=== PATIENT | female | born 1965 | race Caucasian/White ===

== ENCOUNTER 2025-04-25 17:42 | Inpatient (IN) | payer OTHER ==
[~2025-04-25 17:42] MED LIST: Iopamidol-370 76% 500 ML MDV (1 ML CHARGE) ONE
[2025-04-25 18:24] LABS: #Basophils Less than 0.03 10x3/uL (0.0-0.2); #Eosinophils 0.13 10x3/uL (0.0-0.7); #Monocytes 0.24 10x3/uL (0.11-0.59); #Neutrophils 3.40 10x3/uL (1.40-6.50); %Basophils 0.4 % (0.0-1.0); %Eosinophils 2.7 % (0.0-10.0); %Lymphocytes 22.2 % (21.0-51.0); %Monocytes 4.9 % (0.0-10.0); %Neutrophils 69.8 % (42.0-75.0); Hematocrit 35.8 % (36.0-47.0); Hemoglobin 11.9 g/dL (12.0-16.0); Mean Corpuscular Hemoglobin 29.5 pg (27.0-31.0); Mean Corpuscular Volume 88.6 fL (78.0-98.0); Platelet Count 213 10x3/uL (130-400); Red Blood Cell (RBC) Count 4.04 mill/uL (4.20-5.40); White Blood Cell (WBC) Count 4.87 10x3/uL (4.8-10.8)
[2025-04-25 18:38] LABS: ALT (SGPT) 89 U/L (Less than 34); AST (SGOT) 262 U/L (11-34); Albumin 3.9 g/dL (3.1-4.5); Alkaline Phosphatase 110 U/L (40-110); Anion Gap 15 mmol/L (10-20); BUN (Urea Nitrogen) 16 mg/dL (9.8-20.1); Bilirubin, Total 0.6 mg/dL (0.3-1.2); Calc. Creatinine Clearance 0 mL/min (70-130); Calcium 9.0 mg/dL (7.8-10.44); Carbon Dioxide 25 mmol/L (22-29); Chloride 106 mmol/L (98-107); Globulin 2.7 g/dL (2.4-3.5); Glucose 123 mg/dL (70-105); Potassium 3.8 mmol/L (3.5-5.1); Sodium 142 mmol/L (136-145)
[2025-04-26] MEDS ORDERED: Dextrose 50% Abboject 50 ML SYRINGE SLOW IVP PRN (05:58)
[2025-04-26] MEDS ORDERED: hydrALAZINE 20 MG/ML VIAL SLOW IVP PRN (05:58)
[2025-04-26] MEDS ORDERED: Methocarbamol 500 MG TAB PO PRN (05:58)
[2025-04-26] MEDS ORDERED: Glucagon 1 MG/ML KIT IM PRN (05:58)
[2025-04-26] MEDS ORDERED: Ondansetron PF 4 MG/2 ML Vial ONE ×4 (06:04→17:15)
[2025-04-26] MEDS: Senokot S 8.6-50 MG TAB PO SCH (09:38)
[2025-04-26] MEDS: FLU (Fluarix Triv) 25-26 (6MOS UP)/PF 45 MCG/0.5 ML Syringe IM ONE (09:44)
[2025-04-26] MEDS: Ondansetron PF 4 MG/2 ML Vial IVP PRN (10:20)
[2025-04-26] MEDS ORDERED: Bupivacaine 0.25% HCL 30 ML VIAL ONE (15:08)
[2025-04-26] MEDS ORDERED: fentaNYL PF 100 MCG/2 ML SYRINGE ONE (15:13)
[2025-04-26] MEDS ORDERED: Rocuronium Bromide 10 MG/ML (10ML VIAL) ONE (15:13)
[2025-04-26] MEDS ORDERED: Lidocaine 1% PF 5 ML VIAL ONE (15:13)
[2025-04-26] MEDS ORDERED: PROPOFOL 20 ML ONE (15:13)
[2025-04-26] MEDS ORDERED: PHENYLEPHRINE-NS 100 MCG/ML 10 ML SYRINGE ONE (15:56)
[2025-04-26] MEDS ORDERED: Glycopyrrolate 0.2 MG/ML 5 ML SYRINGE ONE (15:58)
[2025-04-26] MEDS ORDERED: SUGAMMADEX SODIUM 200 MG/2 ML VIAL ONE (16:28)
[2025-04-26] MEDS ORDERED: Ketorolac Tromethamine 30 MG (1 mL) VIAL ONE (17:21)
[2025-04-26 19:35] VITALS: BMI 24.2
[2025-04-26] MEDS: Acetaminophen 325 MG TAB PO PRN (21:08)
[2025-04-27 05:43] LABS: #Basophils Less than 0.03 10x3/uL (0.0-0.2); #Eosinophils Less than 0.03 10x3/uL (0.0-0.7); #Monocytes 0.36 10x3/uL (0.11-0.59); #Neutrophils 3.82 10x3/uL (1.40-6.50); %Basophils 0.2 % (0.0-1.0); %Eosinophils 0.0 % (0.0-10.0); %Lymphocytes 20.1 % (21.0-51.0); %Monocytes 6.8 % (0.0-10.0); %Neutrophils 72.5 % (42.0-75.0); Hematocrit 35.2 % (36.0-47.0); Hemoglobin 11.5 g/dL (12.0-16.0); Mean Corpuscular Hemoglobin 29.3 pg (27.0-31.0); Mean Corpuscular Volume 89.8 fL (78.0-98.0); Platelet Count 217 10x3/uL (130-400); Red Blood Cell (RBC) Count 3.92 mill/uL (4.20-5.40); White Blood Cell (WBC) Count 5.27 10x3/uL (4.8-10.8)
[2025-04-27 05:52] LABS: ALT (SGPT) 118 U/L (Less than 34); AST (SGOT) 79 U/L (11-34); Albumin 3.4 g/dL (3.1-4.5); Alkaline Phosphatase 106 U/L (40-110); Anion Gap 11 mmol/L (10-20); BUN (Urea Nitrogen) 10 mg/dL (9.8-20.1); Bilirubin, Total 0.8 mg/dL (0.3-1.2); Calc. Creatinine Clearance 69 mL/min (70-130); Calcium 8.7 mg/dL (7.8-10.44); Carbon Dioxide 27 mmol/L (22-29); Chloride 105 mmol/L (98-107); Globulin 2.7 g/dL (2.4-3.5); Glucose 101 mg/dL (70-105); Potassium 4.1 mmol/L (3.5-5.1); Sodium 139 mmol/L (136-145)
[2025-04-27] MEDS ORDERED: Iopamidol-370 76% 500 ML MDV (1 ML CHARGE) ONE (12:47)
[2025-04-27 15:48] VITALS: BP 112/74; TEMP 98.4
== END 2025-04-27 18:00 | disposition home or self-care (01) | DRG 419 ==
LOC: ERS 17:42 → EEVIPCON 04-26 06:04 → ERHOLD 04-26 06:04 → SURG A 04-26 17:05
PROVIDERS: ADMIT Surgery; ATTEND Surgery
PROC: 0FT44ZZ Resection of Gallbladder, Percutaneous Endoscopic Approach (ICD-10-PCS; principal; 2025-04-26)
PROC: 8E0W4CZ Robotic Assisted Procedure of Trunk Region, Percutaneous Endoscopic Approach (ICD-10-PCS; 2025-04-26)
PROC: 3E03329 Introduction of Other Anti-infective into Peripheral Vein, Percutaneous Approach (ICD-10-PCS; 2025-04-26)
DX: K80.00 Calculus of gallbladder with acute cholecystitis without obstruction (principal); M19.90 Unspecified osteoarthritis, unspecified site; Z96.643 Presence of artificial hip joint, bilateral; Z98.51 Tubal ligation status; D64.9 Anemia, unspecified; Z86.19 Personal history of other infectious and parasitic diseases; K31.9 Disease of stomach and duodenum, unspecified
CPT/HCPCS: 36415; 71045; 71275; 74174; 74177; 76705; 80053; 83690; 84484; 85025; 88304; 93005; C1894; J0169; J0665; J1100; J1885; J2270; J2405; J2543; J2550; J2704; J3010; J7120; Q9967; S2900